=== PATIENT | female | born 1995 | race Caucasian/White ===

== ENCOUNTER 2022-05-26 17:15 | Outpatient (CLI) | payer BC, MEDICAID, SELFPAY ==
[2022-05-26 17:27] VITALS: BMI 27.1
[2022-05-26 17:28] VITALS: TEMP 36.4; O2SAT 98
[2022-05-26 18:13] LABS: ROM Internal Control Test YES-OK TO RESULT pt. (Internal QC); ROM Patient Test Negative (Negative)
--- NOTE | 2022-05-26 20:21 | OB.TRI.HP_ITS ---
HPI - General HPI Narrative SIOBHAN RIVERA, is a 27 F at 39.2 weeks gestation who presents with leaking of fluid since earlier this morning. Positive movement. Feeling occasional contractions. Patient is to planning to deliver at tertiary hospital ([facility]) due to need for brain ultrasound/MRI after delivery. Maternal Data Information RAYRAY Calculator Estimated Delivery Date Method Current WG Current Estimate 05/31/22 Manual 39w 2d PFSH PFSH Home Medications vits,calcium no.78-iron fumarate-folic acid 29 mg-1 mg tablet (Prenatabs FA) 1 tab PO DAILY 04/23/15 [History Last Taken 05/25/22 12:00] Allergy/AdvReac Type Severity Reaction Status Date / Time amoxicillin AdvReac Vomiting Verified 04/26/15 07:25 Social History Smoking Status: Former smoker History Elective abortions Hx Para 0 Spontaneous abortions Hx # Term Pregnancies Ectopic pregnancies Hx # Pregnancies Multiple births # of living children Visit Details OB Flowsheet Initial Weight: Not Recorded Date -?-?-?-?-?-?-?-?-?-?-?-?- EGA Weight BP Urine Prot -?-?-?-?-?-?-?-?-?-?-?-?- Glucose FHR FuHt Pres Dilation -?-?-?-?-?-?-?-?-?-?-?-?- Effaced St Visit Note 05/26/22 -?-?-?-?-?-?-?-?-?-?-?-?- 39w 2d 139 lb -?-?-?-?-?-?-?-?-?-?-?-?- -?-?-?-?-?-?-?-?-?-?-?-?- ROS Eyes Eyes: Denies blurry vision Cardiovascular Cardiovascular: Reports none; Denies chest pain at rest, chest pain with activity or dizziness Respiratory/Chest Respiratory/Chest: Denies cough or dyspnea Gastrointestinal Gastrointestinal: Reports none and other; Denies diarrhea or vomiting Genitourinary Genitourinary: Denies dysuria Musculoskeletal Musculoskeletal: Reports none Integumentary Integumentary: Reports none; Denies rash Neurologic Neurologic: Denies dizziness, headache(s) or other visual disturbances Psychiatric Psychiatric: Reports none Physical Exam Const alert and no apparent distress General Appearance: cooperative Orientation / Consciousness: awake Exam Limitations: no limitations HEENT normocephalic Eyes General Eye: normal appearance of both eyes Neck full ROM Chest inspection of chest normal Resp normal respiratory effort and normal air movement Effort and Inspection: symmetric chest movement Auscultation: clear to auscultation bilaterally Cardio regular rate GI soft to palpation, non-tender and non-distended Inspection: and other Back/Spine normal ROM Extremity full ROM, normal capillary refill and no calf tenderness Skin no rashes or lesions noted Neuro oriented x3 and CN's II-XII intact bilaterally Psych mental status grossly normal NST FHR Rate Baby A Baseline: 125 Variability:: Moderate Accelerations:: 15 x 15 Decelerations:: None NST Reactive:: Yes FHR Category:: Category I Uterine Activity:: irregular Assessment & Plan (1) Leakage of amniotic fluid: (2) 39 weeks gestation of : (3) Rubella non-immune status, antepartum: PLAN: Plan ROM plus - negative NST reactive- Cat. 1 tracing CE- /-3 D/C home with labor precautions and follow up in office
== END 2022-05-26 18:29 | disposition home or self-care (01) ==
LOC: WP 17:34 → WPOUT 17:35
PROVIDERS: PCP Pediatrics; Visit Provider Advanced Practice Midwife
DX: O42.92 Full-term premature rupture of membranes, unspecified as to length of time between rupture and onset of labor (principal); Z87.891 Personal history of nicotine dependence; Z3A.39 39 weeks gestation of pregnancy; O09.893 Supervision of other high risk pregnancies, third trimester
CPT/HCPCS: 59025; 59050; 84112; 99218; G0378

== ENCOUNTER 2022-06-03 02:10 | Inpatient (IN) | payer BC, MEDICAID, SELFPAY ==
[2022-06-03] VITALS (17 sets, daily range): BP systolic 100–138; BP diastolic 61–85; PULSE 64–84; RESP 16–18; TEMP 36.6–37.1; O2SAT 85–99; BMI 27.9
[2022-06-03] MEDS: Lactated Ringers 1,000 ML 200 ML IV (02:20)
[2022-06-03] MEDS: LACTATED RINGERS 500 ML 999 ML IV (02:28)
[2022-06-03 02:34] LABS: Absolute Lymphocyte Count 2.55 X10^3/uL (0.83-4.51); Absolute Neutrophil Count 9.4 X10^3/uL (2.0-7.7); Basophil# 0.03 X10^3/uL; Basophil% 0.2 % (0-1); Eosinophil# 0.06 X10^3/uL; Eosinophils% 0.5 % (0-5); Hematocrit 31.9 % (37-47); Hemoglobin 10.9 g/dL (12.0-15.0); Lymphocyte # 2.55 X10^3/ul (0.83-4.51); Lymphocyte % 19.6 % (19-41); Mean Corp Hgb Conc 34.2 g/dL (32-36); Mean Corpuscular Hgb 29.9 pg (27.0-32.0); Mean Corpuscular Volume 87.6 fL (81-99); Mean Platelet Vol. 11.7 fl (6.2-12.0); Monocyte% 6.9 % (0-10); NRBC Flagged by Analyzer 0 % (0-5); Neutrophil # 9.36 X10^3/uL (2.7-7.7); Platelet Count 184 K/mm3 (150-450); RBC Distribution Width CV 12.6 % (11.6-14.6); RBC Distribution Width SD 40.4 fl (35.1-43.9); Red Blood Count 3.64 M/mm3 (4.2-5.4)
[2022-06-03] MEDS: Oxytocin 30 units/NS 500 ml 30 UNITS/500 ML IV.SOLN 334 UNITS IV (03:41)
--- NOTE | 2022-06-03 03:49 | PCM.HP.OB ---
HPI - General General Date of Admission: 06/03/22 HPI Narrative SIOBHAN RIVERA, is a 27 F at 40w3d who presents in active labor with SROM, clear fluid at midnight. complicated by suspected anomaly and recommendation to delivery at [facility] but patient was fearful of not making it and came to [facility]. Maternal Data Information RAYRAY Calculator Estimated Delivery Date Method Current WG Current Estimate 05/31/22 Manual 40w 3d Final RAYRAY: 05/31/22 Final RAYRAY Source: US <20 weeks PFSH PFSH Home Medications vits,calcium no.78-iron fumarate-folic acid 29 mg-1 mg tablet (Prenatabs FA) 1 tab PO DAILY 04/23/15 [History Last Taken 05/25/22 12:00] Allergy/AdvReac Type Severity Reaction Status Date / Time amoxicillin AdvReac Vomiting Verified 04/26/15 07:25 Social History Smoking Status: Former smoker History Elective abortions Hx Para 0 Spontaneous abortions Hx # Term Pregnancies Ectopic pregnancies Hx # Pregnancies Multiple births # of living children Visit Details OB Flowsheet Initial Weight: Not Recorded Date <del>?</del> EGA Weight BP Urine Prot <del>?</del> Glucose FHR FuHt Pres Dilation <del>?</del> Effaced St Visit Note 06/03/22 <del>?</del> 40w 3d 143 lb 138/85 119/73 116/80 127/72 <del>?</del> <del>?</del> NST FHR Rate Baby A Baseline: 125 Variability:: Moderate Accelerations:: 15 x 15 Decelerations:: Variable NST Reactive:: Appropriate for gestational age FHR Category:: Category II Uterine Activity:: every 2-3 minutes ROS Constitutional Constitutional: Denies headache(s) Eyes Eyes: Denies acute decrease in peripheral vision, blurry vision or change in vision Cardiovascular Cardiovascular: Denies chest pain or dizziness Respiratory/Chest Respiratory/Chest: Denies cough, dyspnea, dyspnea on exertion, shortness of breath at rest or shortness of breath with exertion Gastrointestinal Gastrointestinal: Denies diarrhea, nausea or vomiting Genitourinary Genitourinary: Reports movement Details: present Musculoskeletal Musculoskeletal: Denies limited range of motion Vital Signs Vital Signs Vital Signs: 06/03/22 02:03 06/03/22 02:03 06/03/22 03:18 Pulse Rate 65 78 Blood Pressure 138/85 H BP Systolic 138 BP Diastolic 85 Pulse Ox 06/03/22 03:18 06/03/22 03:27 06/03/22 03:27 Pulse Rate 75 Blood Pressure BP Systolic BP Diastolic Pulse Ox 99 85 06/03/22 03:44 06/03/22 03:44 06/03/22 03:44 Pulse Rate 79 Blood Pressure 119/73 BP Systolic 119 BP Diastolic 73 Pulse Ox 98 Weight Weight: 143 lb Body Mass Index (BMI) 27.9 Physical Exam Const alert and oriented x3 General Appearance: cooperative Orientation / Consciousness: awake, oriented to person, oriented to place and oriented to time Exam Limitations: no limitations HEENT normocephalic Head and Scalp: normal to inspection, normocephalic and atraumatic Face and Sinus: normal facial exam Eyes General Eye: normal appearance of both eyes Neck full ROM Chest Chest: symmetrical chest wall rise GI Inspection: gravid appearance of the vagina normal Bladder / Kidney Exam: no CVA tenderness Manual OB Exam: estimated gestational size appropriate, presentation cephalic, dilated complete dilation, effaced 100% and station +2 Back/Spine normal ROM Extremity normal to inspection and full ROM Skin no rashes or lesions noted Neuro oriented x3 and moves all extremities Sensorium / Orientation: awake, alert and oriented to person Deep Tendon Reflexes: Rt Patellar (L4): 2+ and Lt Patellar (L4): 2+ Psych mental status grossly normal, affect normal, speech normal and activity/motor behavior normal Labs Labs Labs: Blood Type A POSITIVE Antibody Screen NEGATIVE Hct 31.9 % (37-47) L Hgb 10.9 g/dL (12.0-15.0) L Rhogam given: No RPR nonreactive Rubella non immune GC/CT negative HBsAG negative Hep C AB negative HIV non reactive A positive GBS negative Suspected anomaly on antepartum US: Large CSP, hypoechoic area possible large cavum vergae. Will need follow up outpatient in 1-2 days for US of head. Assessment & Plan (1) 40 weeks gestation of : (2) SROM (spontaneous rupture of membranes): (3) Active labor at term: (4) Suspected anomaly, antepartum: COMMENT: Large CSP, hypoechoic area possible large cavum vergae. Will need follow up outpatient in 1-2 days for US of head. (5) History of depression: (6) Rubella non-immune status, antepartum: PLAN: Plan 1) Admit to labor and delivery 2) Routine labs and covid screening 3) GBS negative 4) A positive 5) Rubella non immune 6) Large CSP, hypoechoic area possible large cavum vergae. Was supposed to deliver at [facility] but was fearful of not making it to the hospital. Will need follow up outpatient in 1-2 days for US of head. 7) Continuous EFM 8) SROM clear fluid 9) Requesting epidural but labor progressing too quickly, too close to delivery for IV pain medication and covid results not returned for Nitrous. Continuous labor support provided 10) Dr. Gonsalez collabortive physician and notified of admission and patient status.
--- NOTE | 2022-06-03 03:49 | EX.PCM.OBRPT ---
Assessment & Plan (1) History of depression: (2) Suspected anomaly, antepartum: COMMENT: Large CSP, hypoechoic area possible large cavum vergae. Will need follow up outpatient in 1-2 days for US of head. (3) Active labor at term: (4) SROM (spontaneous rupture of membranes): (5) 40 weeks gestation of : (6) Rubella non-immune status, antepartum: (7) Vaginal delivery: (8) Laceration of periurethral tissue with delivery: Maternal Data Information RAYRAY Calculator Estimated Delivery Date Method Current WG Current Estimate 05/31/22 Manual 40w 3d Vaginal Delivery Maternal Presentation Maternal Presentation: Active Labor and Spontaneous Rupture of Membranes Operative Information Date of Procedure: 06/03/22 Pre-Operative Diagnosis: Active labor at term with spontaneous rupture of membranes Post-Operative Diagnosis: Surgery / Procedure Performed: Spontaneous Vaginal Delivery Type of Anesthesia: None Estimated Blood Loss: 450 ml Time of Delivery: 03:36 Findings Description of Procedure: Arrived to labor and delivery at 6cm and quickly progressed to complete dilation with urge to push. Unmedicated due to rapid progression of labor. Precipitous of male over periurethral laceration, APGARS 9,9. head delivered with body immediately forthcoming. Placed on maternal abdomen, strong cry. Mouth and nares suctioned for secretions. Cord clamped and cut after delay by FOB. Placenta delivered intact via oj with 3 vessel cord. Pitocin started for active 3rd stage management. Perineum inspected and revealed periurethral laceration, hemostatic and unrepaired. Vaginal sweep completed. Fundus firm, EBL 450ml. Sponge and instrument count correct. Mom and baby stable, planning to breastfeed. Family bonding well. notified of delivery. Presentation: JOY Amniotic Membrane Rupture Type: Spontaneous Amniotic Fluid Description: Clear Placental Delivery Description: Spontaneous Placenta Disposition: [facility] Cord Vessel Description: 3 Vessels Cord Entanglement: None A Gender: Male (1 minute): 9 (5 minute): 9 Delayed Cord Clamping: Yes Post Vaginal Delivery Medications Given After Delivery: IV Pitocin Episiotomy Description: None Laceration: Periurethral Extnsion/lac Complication Complications: None
[2022-06-03] MEDS: 0.9% Saline Lock 10 ML Syringe IV (06:23)
--- NOTE | 2022-06-03 07:30 | NURSING ---
bedside report given to Marissa Kim RN who is assuming care of pt at this time
[2022-06-03 09:34] LABS: Amphetamine Urine VISTA NEGATIVE (<1000 ng/mL); Barbiturate Urine VISTA NEGATIVE (< 200 ng/mL); Benzodiazepine Urine VISTA NEGATIVE (< 200 ng/mL); Cocaine Urine VISTA NEGATIVE (< 300 ng/mL); Ecstacy Urine VISTA NEGATIVE (< 500 ng/mL); Methadone Urine VISTA NEGATIVE (< 300 ng/mL); PCP Urine VISTA NEGATIVE (< 25 ng/mL); THC Urine VISTA NEGATIVE (< 50 ng/mL); Vista UDS pH Range 6
[2022-06-03] MEDS: Prenatal Vits Tablet 1 TABLET PO (11:36)
[2022-06-04 00:50] VITALS: BP 102/61; PULSE 82; RESP 16; TEMP 36.9; O2SAT 98
[2022-06-04 05:06] VITALS: BP 118/55; PULSE 61; RESP 16; TEMP 36.7
[2022-06-04 05:40] LABS: Hematocrit 26.2 % (37-47); Hemoglobin 8.8 g/dL (12.0-15.0); Mean Corp Hgb Conc 33.6 g/dL (32-36); Mean Corpuscular Hgb 30.1 pg (27.0-32.0); Mean Corpuscular Volume 89.7 fL (81-99); Mean Platelet Vol. 10.7 fl (6.2-12.0); Platelet Count 124 K/mm3 (150-450); RBC Distribution Width CV 12.7 % (11.6-14.6); RBC Distribution Width SD 41.5 fl (35.1-43.9); Red Blood Count 2.92 M/mm3 (4.2-5.4); White Blood Count 10.1 K/mm3 (4.4-11.0)
--- NOTE | 2022-06-04 07:56 | PCM.PN.OB ---
Subjective Subjective Doing well per patient and nursing staff. Ambulating and taking PO without difficulty. Voiding and passing flatus. Pain controlled. , services for assistance. Denies headache, visual changes, chest pain, shortness of breath, leg pain or increased bleeding. Lochia normal. Objective Data Objective Data Vital Signs: Vital Signs Temp Pulse Resp BP Pulse Ox O2 Del Method 98.1 F 61 16 118/55 L 98 Room Air 06/04/22 05:06 06/04/22 05:06 06/04/22 05:06 06/04/22 05:06 06/04/22 00:50 06/04/22 05:06 Oxygen Delivery Method Room Air Weight: 143 lb Body Mass Index (BMI) 27.9 Intake & Output: Intake and Output for Last 24 Hours 06/02/22 06/03/22 06/04/22 23:59 23:59 23:59 Intake Total 1163.34 / 1163.34 Output Total 200 / 200 Balance 963.34 / 963.34 Lab / Micro Data Result Diagrams: 06/04/22 05:30 Labs: Laboratory Results - last 24 hr 06/03/22 08:30: Urine Opiates Screen NEGATIVE, Urine Methadone Screen NEGATIVE, Ur Barbiturates Screen NEGATIVE, Ur Phencyclidine Scrn NEGATIVE, Ur Amphetamines Screen NEGATIVE, MDMA (Ecstasy) Screen NEGATIVE, U Benzodiazepines Scrn NEGATIVE, Urine Cocaine Screen NEGATIVE, U Cannabinoids Screen NEGATIVE, Ur Drug Screen Comment 06/04/22 05:30: WBC 10.1, RBC 2.92 L, Hgb 8.8 L, Hct 26.2 L, MCV 89.7, MCH 30.1, MCHC 33.6, RDW Std Deviation 41.5, RDW Coeff of Merly 12.7, Plt Count 124 L, MPV 10.7 Micro: Microbiology 06/03/22 02:27 Nasal Secretion SARS-CoV-2 Antigen (Rapid) - Final ROS Constitutional Constitutional: Reports systems reviewed and no addt'l complaints, except as documented; Denies headache(s) Eyes Eyes: Denies acute decrease in peripheral vision, blurry vision or change in vision ENT HEENT: Reports systems reviewed and no addt'l complaints, except as documented Cardiovascular Cardiovascular: Denies chest pain or dizziness Respiratory/Chest Respiratory/Chest: Denies cough, dyspnea, dyspnea on exertion, shortness of breath at rest or shortness of breath with exertion Gastrointestinal Gastrointestinal: Denies abdominal pain, diarrhea, nausea or vomiting Genitourinary Genitourinary: Denies abdominal discomfort Musculoskeletal Musculoskeletal: Denies limited range of motion Integumentary Integumentary: Reports systems reviewed and no addt'l complaints, except as documented Neurologic Neurologic: Reports systems reviewed and no addt'l complaints, except as documented Psychiatric Psychiatric: Reports systems reviewed and no addt'l complaints, except as documented Endocrine Endocrinology: Reports systems reviewed and no addt'l complaints, except as documented Hematologic/Lymphatic Hematologic/Lymphatic: Reports systems reviewed and no addt'l complaints, except as documented Allergic/Immunologic Allergic/Immunologic: Reports systems reviewed and no addt'l complaints, except as documented Physical Exam Const alert and oriented x3 General Appearance: cooperative Orientation / Consciousness: awake, oriented to person, oriented to place and oriented to time Exam Limitations: no limitations HEENT normocephalic Head and Scalp: normal to inspection, normocephalic and atraumatic Face and Sinus: normal facial exam Eyes General Eye: normal appearance of both eyes Neck full ROM Chest Chest: symmetrical chest wall rise Resp normal respiratory effort and normal air movement Auscultation: clear to auscultation bilaterally Cardio regular rate, regular rhythm, S1 normal heart sound, S2 normal heart sound, no murmurs, no rub, no gallops and no clicks GI normal to inspection, nondistended, normoactive bowel sounds and non-tender appearance of the vagina normal Bladder / Kidney Exam: no CVA tenderness Back/Spine normal ROM Extremity normal to inspection and full ROM Extremity Narrative: Deshaun's negative bilaterally Skin no rashes or lesions noted Neuro oriented x3 and moves all extremities Sensorium / Orientation: awake, alert and oriented to person Motor Exam: clonus absent Deep Tendon Reflexes: Rt Patellar (L4): 2+ and Lt Patellar (L4): 2+ Assessment & Plan (1) Rubella non-immune status, antepartum: (2) History of depression: (3) Suspected anomaly, antepartum: COMMENT: Large CSP, hypoechoic area possible large cavum vergae. Will need follow up outpatient in 1-2 days for US of head. (4) Vaginal delivery: (5) Laceration of periurethral tissue with delivery: (6) Precipitous delivery: PLAN: Plan 1) PPD#1 2) VSS 3) Pain management 4) 5) Planning D/C home today. Will need outpatient follow up for evaluation and working with nursing to set up appointment. 6) Follow up in 2 weeks and 6 weeks PP
--- NOTE | 2022-06-04 08:01 | PCM.DC.SUM ---
Providers Date of Admission: 06/03/22 Primary Care Physician: Dr. Bony Valverde DO Reason For Visit: VAGINAL DELIVERY Diagnosis Discharge Diagnosis (1) Rubella non-immune status, antepartum: Status: Acute Code(s): O09.899 - Supervision of other high risk pregnancies, unspecified trimester; Z28.39 - Other underimmunization status (2) History of depression: Status: Acute Code(s): Z86.59 - Personal history of other mental and behavioral disorders (3) Suspected anomaly, antepartum: Status: Acute Code(s): O35.9XX0 - Maternal care for (suspected) abnormality and damage, unspecified, not applicable or unspecified (4) Vaginal delivery: Status: Acute Code(s): O80 - Encounter for full-term uncomplicated delivery (5) Laceration of periurethral tissue with delivery: Status: Acute Code(s): O71.89 - Other specified obstetric trauma (6) Precipitous delivery: Status: Acute Code(s): O62.3 - Precipitate labor Plan 1) PPD#1 2) VSS 3) Pain management 4) 5) Planning D/C home today. Will need outpatient follow up for evaluation and working with nursing to set up appointment. 6) Follow up in 2 weeks and 6 weeks PP Medications at Discharge Home Medications vits,calcium no.78-iron fumarate-folic acid 29 mg-1 mg tablet (Prenatabs FA) 1 tab PO DAILY 04/23/15 acetaminophen 500 mg tablet 1,000 mg PO Q6H PRN PRN Pain 1-10 Or Fever #0 tabs 06/04/22 ibuprofen 600 mg tablet 600 mg PO Q6H PRN PRN Pain Score 1-3 #0 tabs 06/04/22 Weight / BMI Weight Weight: 143 lb Body Mass Index (BMI) 27.9 ABG / Lab / Microbiology Data Result Diagrams: 06/04/22 05:30 Laboratory: Laboratory Results - last 24 hr 06/03/22 08:30: Urine Opiates Screen NEGATIVE, Urine Methadone Screen NEGATIVE, Ur Barbiturates Screen NEGATIVE, Ur Phencyclidine Scrn NEGATIVE, Ur Amphetamines Screen NEGATIVE, MDMA (Ecstasy) Screen NEGATIVE, U Benzodiazepines Scrn NEGATIVE, Urine Cocaine Screen NEGATIVE, U Cannabinoids Screen NEGATIVE, Ur Drug Screen Comment 06/04/22 05:30: WBC 10.1, RBC 2.92 L, Hgb 8.8 L, Hct 26.2 L, MCV 89.7, MCH 30.1, MCHC 33.6, RDW Std Deviation 41.5, RDW Coeff of Merly 12.7, Plt Count 124 L, MPV 10.7 Microbiology: Microbiology 06/03/22 02:27 Nasal Secretion SARS-CoV-2 Antigen (Rapid) - Final Meaningful Use Info Meaningful Use Diagnoses (Choose all that apply): None applicable Discharge Plan Admission Admit Date/Time: 06/03/22 02:10 Primary Reason for Your Visit: Vaginal delivery Attending Provider: Jackie Bravo Primary Care Provider: Bony Valverde Instructions Patient Instructions: After a Vaginal Discharge Orders/Prescriptions Prescriptions: New acetaminophen 500 mg Tablet 1,000 mg PO Q6H PRN PRN (Reason: Pain 1-10 Or Fever) Qty: 0 0RF ibuprofen 600 mg Tablet 600 mg PO Q6H PRN PRN (Reason: Pain Score 1-3) Qty: 0 0RF Continued Prenatabs FA 1 TABLET tablet 1 tab PO DAILY Referrals / Follow Up: Jackie Bravo CNM [Med Staff - Adv Practice Prof] - (Follow up in 2 weeks for virtual visit and 6 weeks for PP visit) Bony Valverde DO [Primary Care Provider] - Disposition Disposition (needs filled in before D/C Order can be placed): Home, Self Care
[2022-06-04 08:04] VITALS: BP 108/63; PULSE 78; RESP 16; TEMP 36.2
[2022-06-04] MEDS: Prenatal Vits Tablet 1 TABLET PO (10:58)
[2022-06-04 13:56] VITALS: BP 110/67; PULSE 80; RESP 16; TEMP 36.7; O2SAT 98
== END 2022-06-04 17:36 | disposition home or self-care (01) | DRG 807 ==
LOC: WPOUT 02:10 → WP 02:10
PROVIDERS: Admitting Provider Advanced Practice Midwife; PCP Pediatrics; Visit Provider Advanced Practice Midwife
DX: O62.3 Precipitate labor (principal); Z37.0 Single live birth; O99.344 Other mental disorders complicating childbirth; F32.A Depression, unspecified; O71.82 Other specified trauma to perineum and vulva; O76 Abnormality in fetal heart rate and rhythm complicating labor and delivery; Z3A.40 40 weeks gestation of pregnancy; O35.9XX0 Maternal care for (suspected) fetal abnormality and damage, unspecified, not applicable or unspecified; Z28.39 Other underimmunization status
CPT/HCPCS: 59025; 59050; 80307; 85025; 85027; 86850; 86900; 86901; 87426; 99218; 99406; J7120; A4216; G0378

== ENCOUNTER 2025-03-17 22:50 | Inpatient (IN) | payer BC, SELFPAY ==
[2025-03-17] MEDS: Lactated Ringers 1,000 ML 50 ML IV (22:55)
[2025-03-17 23:12] VITALS: RESP 18; TEMP 36.6
[2025-03-17 23:13] VITALS: BP 123/75; PULSE 68
[2025-03-17 23:15] VITALS: PULSE 69; O2SAT 100
[2025-03-17 23:17] VITALS: BMI 24.7
[2025-03-17 23:18] LABS: Absolute Lymphocyte Count 2.28 X10^3/uL (0.83-4.51); Absolute Neutrophil Count 8.3 X10^3/uL (2.0-7.7); Basophil# 0.03 X10^3/uL; Basophil% 0.3 % (0-1); Eosinophil# 0.05 X10^3/uL; Eosinophils% 0.4 % (0-5); Hematocrit 36.4 % (37-47); Hemoglobin 12.7 g/dL (12.0-15.0); Lymphocyte # 2.28 X10^3/ul (0.83-4.51); Mean Corp Hgb Conc 34.9 g/dL (32-36); Mean Corpuscular Volume 86.1 fL (81-99); Mean Platelet Vol. 11.1 fl (6.2-12.0); Monocyte# 0.67 X10^3/uL; Monocyte% 5.9 % (0-10); NRBC Flagged by Analyzer 0 % (0-5); Neutrophil # 8.27 X10^3/uL (2.7-7.7); Neutrophil % 72.4 % (47-70); Platelet Count 194 K/mm3 (150-450); RBC Distribution Width SD 39.9 fl (35.1-43.9); Red Blood Count 4.23 M/mm3 (4.2-5.4); White Blood Count 11.4 K/mm3 (4.4-11.0)
[2025-03-17] MEDS: Oxytocin 15 Units/NS 250ml 15 UNITS/250 ML IV.SOLN 334 UNITS IV (23:44)
[2025-03-17] MEDS: Lidocaine 1% (20 ml mdv) 20 ML Vial INFILT (23:45)
[2025-03-18] VITALS (32 sets, daily range): BP systolic 87–114; BP diastolic 52–69; PULSE 75–98; RESP 16–18; TEMP 36.2–37; O2SAT 97–99
--- NOTE | 2025-03-18 00:01 | HP.PCM.OB_ITS ---
HPI - General General Date of Admission: 03/17/25 Date of Service: 03/18/25 Chief Complaint: contractions HPI Narrative SIOBHAN RIVERA, is a 30 F who presents with contractions. [facility] Medical History (Updated 03/18/25 @ 00:[address] Lacey Gonsalez, DO) Asthma Depression Anxiety Home Medications ?Medication ?Instructions ?Recorded ?Last Taken ?Type vits,calcium no.78-iron 1 tab PO DAILY pregna ncy 04/23/06/02/22 20:00 History fumarate-folic acid 29 mg-1 mg tablet (Prenatabs FA) acetaminophen 500 mg tablet 1,000 mg (2 x 500 mg) PO Q 6H PRN 06/04/22 Unknown Rx PRN Pain 1-10 Or Fever #0 tabs ibuprofen 600 mg tablet 600 mg PO Q6H PRN PRN Pain S core 06/04/22 Unknown Rx 1-3 #0 tabs Allergy/AdvReac Type Severity Reaction Status Date / Time amoxicillin AdvReac Vomiting Verified 06/03/22 04:27 Social History Smoking Status: Current every day smoker History Elective abortions Hx Para 2 Spontaneous abortions Hx # Term Pregnancies Ectopic pregnancies Hx # Pregnancies Multiple births # of living children Vital Signs Vital Signs Vital Signs: 03/17/25 23:12 03/17/25 23:12 03/17/25 23:12 Temperature 97.9 F Temperature Source Temporal Pulse Rate Respiratory Rate 18 Blood Pressure BP Systolic BP Diastolic Pulse Ox 03/17/25 23:13 03/17/25 23:13 03/17/25 23:15 Temperature Temperature Source Pulse Rate 68 69 Respiratory Rate Blood Pressure 123/75 H BP Systolic 123 BP Diastolic 75 Pulse Ox 03/17/25 23:15 03/18/25 00:00 03/18/25 00:00 Temperature Temperature Source Pulse Rate 85 Respiratory Rate Blood Pressure BP Systolic BP Diastolic Pulse Ox 100 99 Weight Weight: 131 lb 2 oz Body Mass Index (BMI) 24.7 Physical Exam Const alert and no apparent distress Constitutional Narrative: uncomfortable Labs Labs Labs: Blood Type A POSITIVE Antibody Screen NEGATIVE Hct 36.4 % (37-47) L Hgb 12.7 g/dL (12.0-15.0) Syphilis Total Ab Pending Rhogam given: No Assessment & Plan (1) 39 weeks gestation of : (2) History of depression: (3) Active labor at term: PLAN: Pt presents at 10 cm dilated. Pelvis adequate and EFW < 4500 grams. GBS negative. See delivery report. (4) GDM, class A1:
--- NOTE | 2025-03-18 00:03 | EX.PCM.OBVAG ---
Assessment & Plan (1) GDM, class A1: (2) 39 weeks gestation of : (3) History of depression: (4) Active labor at term: (5) Vaginal delivery: Vaginal Delivery Maternal Presentation Maternal Presentation: Active Labor Vaginal Delivery Information Surgeon/Practitioner: Lacey Gonsalez Date of Procedure: 03/18/25 Pre-Procedure Diagnosis: 39 week gestation, active labor, SROM, A1GDM Post-Procedure Diagnosis: As above Type of anesthesia: None Special Medications: None Estimated Blood Loss: 200 mL Fluids Replaced: N/A Findings Description of procedure: Patient complete and pushing. Head delivered in OP position. Loose nuchal cord x 1 noted without compression. Shoulders and body of delivered without traction, force or delay. Terminal meconium was noted. A vigorous VMI was placed on maternal abdomen and cord was clamped and cut after a 60 second delay by FOB. Placenta delivered spontaneously and was noted to be normal appearing and intact with 3VC. Fundus firm and bleeding minimal. A first degree vaginal laceration was repaired in usual fashion with 3-0 Vicryl after injection of 1% lidocaine. A vaginal sweep was performed. Sponge count was correct. 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
[2025-03-18 00:09] LABS: Syphilis Antibodies Nonreactive (Nonreactive)
[2025-03-18] MEDS: Oxytocin 15 Units/NS 250ml 15 UNITS/250 ML IV.SOLN 83 UNITS IV (00:30)
[2025-03-18 00:55] LABS: Bedside Glucose 112 mg/dL (74-106)
[2025-03-18] MEDS: Ibuprofen 600 MG Tablet PO (01:24)
[2025-03-18 06:31] LABS: Bedside Glucose 70 mg/dL (74-106)
[2025-03-18 06:44] LABS: Hematocrit 29.9 % (37-47); Hemoglobin 10.8 g/dL (12.0-15.0); Mean Corp Hgb Conc 36.1 g/dL (32-36); Mean Corpuscular Hgb 31.5 pg (27.0-32.0); Mean Corpuscular Volume 87.2 fL (81-99); Mean Platelet Vol. 11.2 fl (6.2-12.0); Platelet Count 161 K/mm3 (150-450); RBC Distribution Width SD 40.6 fl (35.1-43.9); Red Blood Count 3.43 M/mm3 (4.2-5.4); White Blood Count 15.8 K/mm3 (4.4-11.0)
--- NOTE | 2025-03-18 07:26 | PCM.PN.OB ---
Subjective Subjective Patient is doing well this morning and offers no complaints. Some cramping with breast-feeding. Breast-feeding is going well. Lochia has been normal per patient and nursing staff. The patient denies lightheadedness or dizziness. She has been ambulating and voiding without difficulty. The patient denies chest pain, shortness of breath, leg pain. Objective Data Objective Data Vital Signs: Vital Signs Temp Pulse Resp BP Pulse Ox 97.9 F 80 16 87/53 L 98 03/18/25 01:25 03/18/25 06:11 03/18/25 01:25 03/18/25 06:11 03/18/25 01:25 Weight: 131 lb 2 oz Body Mass Index (BMI) 24.7 Intake & Output: Intake and Output for Last 24 Hours 03/16/25 03/17/25 03/18/25 23:59 23:59 23:59 Intake Total 41.67 / 41.67 481.02 / 481.02 Output Total 200 / 200 400 / 400 Balance -158.33 / -158.33 81.02 / 81.02 Lab / Micro Data 03/18/25 06:25 Labs: Laboratory Results - last 24 hr 03/17/25 22:56: WBC 11.4 H, RBC 4.23, Hgb 12.7, Hct 36.4 L, MCV 86.1, MCH 30.0, MCHC 34.9, RDW Std Deviation 39.9, RDW Coeff of Merly 13.0, Plt Count 194, MPV 11.1, Immature Gran % (Auto) 1.000 H, Neut % (Auto) 72.4 H, Lymph % (Auto) 20.0, [place] % (Auto) 5.9, Eos % (Auto) 0.4, Baso % (Auto) 0.3, Absolute Neuts (auto) 8.3 H, Absolute Lymphs (auto) 2.28, Nucleated RBC % 0, Syphilis Total Ab Nonreactive, Blood Type Cancelled, Antibody Screen Cancelled 03/18/25 00:19: POC Glucose 112 H 03/18/25 00:24: Blood Type A POSITIVE, Antibody Screen NEGATIVE 03/18/25 05:57: POC Glucose 70 L 03/18/25 06:25: WBC 15.8 H, RBC 3.43 L, Hgb 10.8 L, Hct 29.9 L, MCV 87.2, MCH 31.5, MCHC 36.1 H, RDW Std Deviation 40.6, RDW Coeff of Merly 13.0, Plt Count 161, MPV 11.2 Physical Exam Const alert and no apparent distress General Appearance: comfortable GI soft to palpation and non-tender GI Narrative: FF@U Assessment & Plan (1) Precipitous delivery: (2) Vaginal delivery: PLAN: Patient is day 1 from a precipitous vaginal delivery. She has been hypotensive, but is asymptomatic. A CBC was checked this morning showing a hemoglobin of 10.6. Patient has no symptoms of anemia and lochia has been normal per patient and per nursing staff. Patient has no significant vaginal or abdominal pain. Continue to push fluids and discussed with patient what symptoms to notify staff about. Routine care. Anticipate discharge tomorrow.
--- NOTE | 2025-03-18 13:30 | CASEMGMT ---
Social Work Brief Assessment - Labor and Delivery Unit Patient Address: [place] [address] Phone number: [phone] Date and Time of Referral:? 03/18/25 Referred By: [id number] Date and time of intervention:? 03/18/25, 8536 Reason for Referral:??patient's father has history of alcohol Informant:?? Medical records, mother of baby (MOB- Mony) and father of baby (FOB- Asya Moeller). History:? JELANI is 30 year old female who is 4, para 3- now 4 following labor and delivery of . JELANI received routine care during with [facility]. JELANI presented to hospital and delivered baby via vaginal delivery at 39 weeks gestation on 03/17/25. Baby boy, named Sheldon Barriga, was born weighing 7lb 5oz with apgars of 8 and 9 at one and five minutes of life respectfully. Baby will be followed by Dr. Malone and MOB states that breast feeding is going well. JELANI has three other children: Marcy (5), Hiral (9) and René (2). FOB states that he and MOB have been together for 7/5 years after knowing each other through each other's siblings. Both parents are employed at [employer] and are able to take adequate time off for maternity/ paternity leave. JELANI has history of anxiety and depression, reports that it is managed without medication and she did not experience baby blues or anxiety or depression following her other deliveries. JELANI states that she has history of THC use, but has not used for quite some time, especially during . MOB reports that her father has history of alcoholism. Sw educated parents on importance of recognizing genetic disposition and to always use healthy and safe coping mechanisms opposed to seeking comfort from drugs and alcohol. Parents express understanding. All necessary baby supplies obtained and natural supports in place. Parents educated on signs and symptoms of baby blues and depression/ anxiety as well as reminded to never shake a baby and always practice ABCs of safe sleep, parents express understanding. Assessment:?MOB and baby admitted following labor and delivery of . MOB with history of anxiety and depression, she is not prescribed anything to help her manage her symptoms. MOB states that she uses healthy and safe coping mechanisms. FOB was observed sitting on couch comfortably while MOB was laying in bed holding baby. Both parents report that they are happy baby is here and mom and baby are healthy. MOB states that she is nervous to have some many kids that are young/ toddlers, but states that she has help and knows that the time will go fast. MOB denies any other stressors or concerns at this time. Plan:??? MOB and baby to be discharged when medically ready. Information provided to parents regarding: Help Me Grow, shaken baby prevention, ABCs of safe sleep, [facility] health resources and signs and symptoms of baby blues and depression/ anxiety. No further needs requested or indicated. Selene Anand, thermostat repairer, WHARF T[employer]ER
[2025-03-19 02:35] VITALS: BP 101/58; PULSE 86; PULSE 88; RESP 16; TEMP 36.4; O2SAT 97
--- NOTE | 2025-03-19 07:56 | PCM.DC.SUM ---
Providers Date of Admission: 03/17/25 Primary Care Physician: Dr. Bony Valverde DO Reason For Visit: VAGINAL DELIVERY Diagnosis Discharge Diagnosis (1) Precipitous delivery: Status: Acute Code(s): O62.3 - Precipitate labor (2) Vaginal delivery: Status: Acute Code(s): O80 - Encounter for full-term uncomplicated delivery Plan PPD 2 support Pain controlled D/C home with follow up in office Medications at Discharge Home Medications vits,calcium no.78-iron fumarate-folic acid 29 mg-1 mg tablet (Prenatabs FA) 1 tab PO DAILY 04/23/15 Hospital Course Operations None Procedures None Summary of Care Provided Minutes Spent on Discharge: 15 Hospital Course: Patient had vaginal delivery. Hospital course was uneventful. Physical Exam Narrative Patient seen at bedside. Denies pain. Ambulating and voiding without difficulty. Lochia decreased. Desires discharge home today. Const alert and oriented x3 General Appearance: Negative for in distress HEENT normocephalic Eyes General Eye: normal appearance of both eyes Neck General: normal visual inspection Chest Chest: symmetrical chest wall rise Resp normal respiratory effort and normal air movement Effort and Inspection: symmetric chest movement; Negative for tachypneic Auscultation: clear to auscultation bilaterally Cardio regular rate and regular rhythm Peripheral Pulses: pulses 2+ throughout GI normal to inspection, nondistended, normoactive bowel sounds Narrative: Ice to perineum OB / External & Speculum: vaginal bleeding and other Lochia decreasing Uterus Palpation: uterus fundus firm (Below U) Extremity normal to inspection, full ROM and normal capillary refill Skin no rashes or lesions noted Neuro oriented x3, CN's II-XII intact bilaterally and gait normal Psych mental status grossly normal, thought process normal and activity/motor behavior normal Weight / BMI Weight Weight: 131 lb 2 oz Body Mass Index (BMI) 24.7 ABG / Lab / Microbiology Data 03/18/25 06:25 D/C Instructions Discharge Diet: No restrictions Discharge Activity: Return to Normal Activity, No Restrictions, May Drive, May Shower and May Take a Tub Bath (Warm water only. No bath salts, soaps, bubbles) May resume sexual activity in: 6-8 weeks Weight Bearing Status: Weight bearing as tolerated Call your doctor if you observe: Fever of 101 or Higher, Inability to urinate, Using more than 1 pad per hour, Shortness of breath, Dizziness, Chest pain, Calf discomfort and Uncontrolled pain DC O2, CPAP, BIPAP Needs Home O2 Discharge instructions: No Please Follow Up With: [facility] Vladislav MODI When: 2 weeks in office or virtual Meaningful Use Info Meaningful Use Meaningful Use Diagnoses (Choose all that apply): None applicable Ischemic Stroke Statin Dosing Therapy Reference: STATIN DOSE THERAPY REFERENCE: * Patients > 75 years receive moderate or high dose statin therapy. * Patients 75 years or YOUNGER should receive HIGH intensity statin dose unless contraindicated. You will be required to document reason for non-treatment if statin daily dose does not meet guidelines. HIGH DOSE STATIN THERAPY DAILY Atorvastatin > than or = to 40 mg Rosuvastatin > than or = to 20 mg Amlodipine + Atorvastatin > than or = to 2.5/40 mg Ezetimibe + Simvastatin 10/80 mg Simvastatin 80mg Discharge Plan Admission Admit Date/Time: 03/17/25 22:50 Primary Reason for Your Visit: Labor and Delivery Attending Provider: Lacey Gonsalez Primary Care Provider: Bony Valverde Discharge Orders/Prescriptions Prescriptions: No Action Prenatabs FA 1 TABLET tablet 1 tab PO DAILY Referrals / Follow Up: Mari Mcdonald CNM [Med Staff - Adv Practice Prof] - Bony Valverde DO [Primary Care Provider] - Disposition Disposition (needs filled in before D/C Order can be placed): Home, Self Care
[2025-03-19 08:58] VITALS: BP 96/55; PULSE 82; RESP 16; TEMP 36.6; O2SAT 98
[2025-03-19 08:59] VITALS: BP 96/55; PULSE 84
== END 2025-03-19 12:00 | disposition home or self-care (01) | DRG 807 ==
LOC: WPOUT 03-18 06:45 → WP 03-18 06:45
PROVIDERS: Admitting Provider Obstetrics & Gynecology; PCP Pediatrics; Referring Provider Obstetrics & Gynecology; Visit Provider Obstetrics & Gynecology
DX: O70.0 First degree perineal laceration during delivery (principal); Z37.0 Single live birth; O24.429 Gestational diabetes mellitus in childbirth, unspecified control; F17.210 Nicotine dependence, cigarettes, uncomplicated; O62.3 Precipitate labor; Z3A.39 39 weeks gestation of pregnancy; O69.81X0 Labor and delivery complicated by cord around neck, without compression, not applicable or unspecified; Z86.59 Personal history of other mental and behavioral disorders; O99.334 Smoking (tobacco) complicating childbirth
CPT/HCPCS: 59025; 59050; 82962; 85025; 85027; 86780; 86850; 86900; 86901; 99221; G0378